=== PATIENT | female | born 1990 ===

== ENCOUNTER 2016-09-12 10:31 | Emergency (ER) | payer OTHER ==
--- NOTE | 2016-09-12 11:13 | UC ---
Ear Complaint HPI - HPI Summary HPI Summary: ONE WEEK AGO HAD SORE THROAT, LEFT EAR POPPED THREE DAYS AGO WHILE ON AIRPLANE, SINCE THAT TIME LEFT EAR PAIN WORSENING. - History of Current Complaint Chief Complaint: UCEar Stated Complaint: SORE THROAT, EAR PAIN Time Seen by Provider: 09/12/16 10:36 Hx Obtained From: Patient Hx Last Menstrual Period: 09/09/16 ?: Yes Onset/Duration: Sudden Onset Severity Initially: Mild Severity Currently: Mild Pain Intensity: 4 Pain Scale Used: 0-10 Numeric Associated Signs/Symptoms: Positive: Hearing Loss - PRESSURE LEFT EAR. Negative : Foreign Body Sensation, URI Symptoms - Allergies/Home Medications Allergies/Adverse Reactions: Allergies Allergy/AdvReac Type Severity Reaction Status Date / Time Bacitracin Allergy Hives Verified 09/12/16 10:38 Povidone Iodine Allergy Hives Verified 09/12/16 10:38 [From Betadine] PMH/Surg Hx/FS Hx/Imm Hx Previously Healthy: Yes - Surgical History Surgical History: Yes Surgery Procedure, Year, and Place: right arm sx - with hardware - Family History Known Family History: Negative: Respiratory Disease - Social History Occupation: Student Lives: With Family Alcohol Use: None Substance Use Type: None Smoking Status (MU): Never Smoked Tobacco Review of Systems Constitutional: Negative Skin: Negative Eyes: Negative ENT: Ear Ache Respiratory: Negative Cardiovascular: Negative Gastrointestinal: Negative Genitourinary: Negative Motor: Negative Neurovascular: Negative Musculoskeletal: Negative Neurological: Negative Psychological: Negative All Other Systems Reviewed And Are Negative: Yes Physical Exam Triage Information Reviewed: Yes Appearance: Well-Appearing, No Pain Distress, Well-Nourished Vital Signs: Initial Vital Signs Temp 98.3 F 09/12/16 10:34 Pulse 95 09/12/16 10:34 Resp 16 09/12/16 10:34 BP 113/81 09/12/16 10:34 Pulse Ox 100 09/12/16 10:34 Vital Signs Reviewed: Yes Eye Exam: Normal ENT: Positive: Pharyngeal erythema, TM dull, TM red, Tonsillar swelling, Other: - LEFT EAC EDEMA ERYTHEMA Dental Exam: Normal Neck exam: Normal Neck: Positive: Supple, Nontender, No Lymphadenopathy Respiratory Exam: Normal Respiratory: Positive: Chest non-tender, Lungs clear, Normal breath sounds, No respiratory distress Cardiovascular Exam: Normal Cardiovascular: Positive: RRR, No Murmur Abdominal Exam: Normal Musculoskeletal Exam: Normal Musculoskeletal: Positive: Strength Intact, ROM Intact Neurological Exam: Normal Psychological Exam: Normal Skin Exam: Normal Ear Complaint Course/Dx - Differential Dx/Diagnosis Differential Diagnosis/HQI/PQRI: Otitis Externa, Otitis Media, URI Provider Diagnoses: LEFT OTITIS MEDIA/OTITIS EXTERNA; TONSILLITIS Discharge - Discharge Plan Condition: Stable Disposition: HOME Prescriptions: Amoxicillin/Clavulanate TAB* [Augmentin TAB 875*] 875 mg PO BID #20 tab Ciproflox/Dexameth OTIC.SUSP* [Ciprodex OTIC.SUSP*] 1 drop .SEE ORDER TID #1 btl Patient Education Materials: Otitis Externa (ED), Otitis Media (ED) Referrals: [facility] [place] [facility] [Outside]
== END 2016-09-12 10:58 | disposition home or self-care (01) ==
LOC: UCEAST 10:31
DX: H60.92 Unspecified otitis externa, left ear (principal); J03.90 Acute tonsillitis, unspecified
CPT/HCPCS: 99202; G0463